=== PATIENT | male | born 1960 | race Caucasian/White ===

== ENCOUNTER 2018-01-10 11:13 | Day surgery (SDC) | payer OTHER ==
[2018-01-10] MEDS ORDERED: MIDAZOLAM 1 MG/ML 2 ML INJ ×2 (15:06)
[2018-01-10] MEDS ORDERED: FENTAnyl 50 MCG/ML VIAL (15:06)
== END 2018-01-11 08:17 | disposition home or self-care (01) ==
LOC: GIL 11:13
DX: Z12.11 Encounter for screening for malignant neoplasm of colon (principal); Z93.3 Colostomy status; D12.2 Benign neoplasm of ascending colon
CPT/HCPCS: 44389; 88305